=== PATIENT | female | born 1980 | race Caucasian/White ===

== ENCOUNTER → 2018-05-17 08:00 | Outpatient (CLI) | payer OTHER, SELFPAY | DX: Z23 Encounter for immunization (principal) | CPT/HCPCS: 90471; 90686 ==

== ENCOUNTER → 2018-12-05 10:16 | Outpatient (CLI) | payer OTHER, SELFPAY ==
--- NOTE | 2018-12-05 | DI.US.S_ITS ---
PROCEDURE: US OB <= 14 WEEKS FETUS INDICATIONS: SIZE AND DATES OUTSIDE/PRIOR DATING DATA: Last menstrual period (LMP): Unknown LMP-based estimated date of delivery (PARMJIT): Unknown. First dating scan (date and location): 12/05/18. Estimated date of delivery (PARMJIT) from first dating scan: 03/07/19. TECHNIQUE: Real-time scanning was performed of the fetus and maternal pelvic organs, with image documentation. Endovaginal scanning was also performed to better visualize the fetus and maternal ovaries. COMPARISON: None. FINDINGS: Embryo: Single living intrauterine fetus is present. MARLEE measures 18.8 cm. heart rate measured 145 beats per minute. Cervical length measures 3.3 cm. Placenta appears trilobed, with anterior, fundal and posterior component Biparietal diameter measures 25.1 cm, 27 weeks 2 days Head circumference measures 22.6 cm, 27 weeks zero days Abdominal circumference measures 4.8 cm, 25 weeks 6 days length measures 4.4 cm, 26 weeks one day Composite gestational age by today's ultrasound measurements 26 weeks 6 days. Estimated weight 974 g. Measurement variability in dating: +/- 4 weeks by LMP, +/- 7 days by mean sac diameter (use before 6 weeks gestation if crown-rump length not able to be measured), +/- 5 days by crown-rump length (up to 8 weeks 6 days gestation), +/- 7 days by crown-rump length (up to 13 weeks 6 days gestation). IMPRESSION: Single living intrauterine fetus with a gestational age measuring 26 weeks and 6 days by today's ultrasound measurements. Growth assessment is precluded by absence of LMP or first trimester dating ultrasound. If clinically warranted, a followup ultrasound in 3-4 weeks could be performed to assess growth. Dictated by: Taiwo Magana M.D. on 12/05/2018 at 16:40 Approved by: Taiwo Magana M.D. on 12/05/2018 at 16:45
== END ==
LOC: US 10:17
PROVIDERS: Visit Provider Family Medicine
DX: Z36.89 Encounter for other specified antenatal screening (principal); Z3A.26 26 weeks gestation of pregnancy
CPT/HCPCS: 76801

== ENCOUNTER → 2018-12-26 12:15 | Outpatient (CLI) | payer OTHER, SELFPAY ==
--- NOTE | 2018-12-26 | DI.US.S_ITS ---
PROCEDURE: US OB >= 14 WEEKS FETUS INDICATIONS: 20 WEEK ANATOMICAL SURVEY OUTSIDE/PRIOR DATING DATA: Last menstrual period (LMP): Unknown LMP-based estimated date of delivery (PARMJIT): Unknown. First dating scan (date and location): 12/05/18. Estimated date of delivery (PARMJIT) from first dating scan: 03/07/19. TECHNIQUE: Real-time scanning was performed of the fetus, with image documentation and biometric measurements. Endovaginal scanning: No COMPARISON: [facility], OB <= 14 WEEKS FETUS, 12/05/2018, 10:38. [facility], OB COMPLETE 14WKS OR MORE, 05/27/2016, 17:16. FINDINGS: General: A single living intrauterine gestation is present. Presentation: Vertex. Placenta: Placental position is anterior posterior with probable posterior succenturiate lobe and possible Velementous placental cord insertion., without previa. Amniotic fluid index: 22.9 cm, normal range is 5-24 cm. heart rate: 136 beats per minute. Maternal cervical canal: 3.3 cm long. Normal lower limit is 2.5 cm. biometrics: Biparietal diameter: 31 weeks 1 day Head circumference: 31 weeks 0 days Abdominal circumference: 29 weeks 3 days Femur length: 26 weeks 4 days Estimated gestational age from initial scan: 29 weeks 6 days Composite gestational age from present scan: 28 weeks 5 days Estimated weight and percentile: 1282 g; 10 percentile Measurement variability for biometric dating: +/- 7 days from 14 weeks to 15 weeks 6 days gestation, +/- 10 days from 16 weeks to 21 weeks 6 days gestation, +/- 2 weeks from 22 weeks to 27 weeks 6 days gestation, +/- 3 weeks for 28 weeks gestation or later. weight reference: 4500 g or EFW >90/95% is considered macrosomia or large for gestational age. EFW <10% is small for gestational age. EFW 5% or less is considered intra-uterine growth restriction. Anatomic survey: Neuro: Ventricles are non-dilated at less than 10 mm. Cisterna magna is not well seen. Nuchal skin fold: Not well-seen. Face: Nose and lips, facial profile are normal. Spine: No evidence for spina bifida. Heart: Not well-seen. Diaphragm: Diaphragm is intact. Stomach: Left-sided stomach is present. Kidneys: No hydronephrosis. Normal is less than 5 mm in 2nd trimester, less than 7 mm in 3rd trimester. Cord: 3-vessel cord has orthotopic insertion. Bladder: Normal in size. Extremities: Suboptimally visualized. IMPRESSION: 1. Single living IUP redemonstrated in the interval growth is lower limits of normal. 2. Limited anatomic survey as above. Recommend followup. 3. Probable posterior succenturiate lobe of placenta and probable velamentous cord insertion site. Dictated by: Papito Rondon [facility] Interpreted: Nydia Williamson MD on 12/26/2018 at 14:00 Approved by: Nydia Williamson M.D. on 12/26/2018 at 14:52
== END ==
PROVIDERS: Visit Provider Family Medicine
DX: Z36.89 Encounter for other specified antenatal screening (principal); Z3A.28 28 weeks gestation of pregnancy
CPT/HCPCS: 76811

== ENCOUNTER → 2019-01-09 12:44 | Outpatient (CLI) | payer OTHER, SELFPAY ==
--- NOTE | 2019-01-09 | DI.US.S_ITS ---
PROCEDURE: US OB >= 14 WEEKS FETUS INDICATIONS: OB RE-EVALUATION OUTSIDE/PRIOR DATING DATA: Last menstrual period (LMP): Unknown. LMP-based estimated date of delivery (PARMJIT): Unknown. First dating scan (date and location): 12/05/18. Estimated date of delivery (PARMJIT) from first dating scan: 03/07/19. TECHNIQUE: Real-time scanning was performed of the fetus, with image documentation and biometric measurements. Endovaginal scanning: Not done COMPARISON: [facility], OB >= 14 WEEKS FETUS, 12/26/2018, 12:34. FINDINGS: General: A single living intrauterine gestation is present. Presentation: Vertex. Placenta: The bilobed placenta is again seen with a velamentous placental cord insertion, unchanged from previous study. There is no placenta previa. Amniotic fluid index: 27.9 cm, normal range is 5-24 cm. heart rate: 132 beats per minute. Maternal cervical canal: Not well-seen. Normal lower limit is 2.5 cm. biometrics: Biparietal diameter: 8.2 cm, 32 weeks 6 days Head circumference: 29.3 cm, 32 weeks 2 days Abdominal circumference: 27.6 cm, 31 weeks 5 days Femur length: 5.7 cm, 30 weeks zero day Estimated gestational age from initial scan: 31 weeks 6 days Composite gestational age from present scan: 31 week one day Estimated weight and percentile: 1745 g, 23% Measurement variability for biometric dating: +/- 7 days from 14 weeks to 15 weeks 6 days gestation, +/- 10 days from 16 weeks to 21 weeks 6 days gestation, +/- 2 weeks from 22 weeks to 27 weeks 6 days gestation, +/- 3 weeks for 28 weeks gestation or later. weight reference: 4500 g or EFW >90/95% is considered macrosomia or large for gestational age. EFW <10% is small for gestational age. EFW 5% or less is considered intra-uterine growth restriction. Anatomic survey: Neuro: Ventricles are non-dilated at less than 10 mm. Cisterna magna is normal at 3-11 mm. Cerebellum is normal in size and morphology. Nuchal skin fold: Normal at less than 6 mm between 14-21 weeks gestational age. Face: Nose and lips, facial profile are normal. Spine: No evidence for spina bifida. Heart: 4-chambered heart is present, with normal ventricular outflow tracts. Diaphragm: Diaphragm is intact. Stomach: Left-sided stomach is present. Kidneys: No hydronephrosis. Normal is less than 5 mm in 2nd trimester, less than 7 mm in 3rd trimester. Cord: See above. Bladder: Normal in size. Extremities: All 4 extremities identified. IMPRESSION: 1. Single live intrauterine . Normal growth. 2. MARLEE measures 27.9 cm on the current study. 3. Bilobed placenta is again seen with a velamentous placental cord insertion unchanged from prior study. No placenta previa. 4. Otherwise normal anatomic survey. Dictated by: Felton Rodriguez M.D. on 01/09/2019 at 16:28 Approved by: Felton Rodriguez M.D. on 01/09/2019 at 16:33
== END ==
PROVIDERS: PCP Family Medicine; Visit Provider Family Medicine
DX: Z36.2 Encounter for other antenatal screening follow-up (principal); Z3A.31 31 weeks gestation of pregnancy
CPT/HCPCS: 76801; 76811

== ENCOUNTER 2019-01-25 06:38 | Inpatient (IN) | payer OTHER, SELFPAY ==
--- NOTE | 2019-01-25 09:29 | PM.OBHP.1 ---
OB HPI Date/Time Date of admission: 01/25/19 Date Patient Seen: 01/25/19 Time Patient Seen: 09:30 History of Present Condition Chief complaint: LABOR & DELIVERY : 4 Para: 3 Estimated Date of Delivery: 03/07/19 Estimated Gestational Age (weeks): 34 Narrative: Hilary Clemens is a 38 year old female G for P3 who presented with history of rupture 1 hour prior to presentation. Clear fluid. Began having some cramping and some bleeding and was brought to the labor and delivery suite. No other changes. Baby was moving well. No other complaint or problem. Mom presented in active labor was placed on bed and delivered. No other significant changes or complaints. labs were unremarkable except for a blood sugar of 160. She has been checking sugars intermittently and has not had a sugar over 101 postprandial. Has history of bilobed placenta with velamentous cord overall was unremarkable. Late care. Twenty-four weeks. Had no previous care. No other changes. Did not have sequential screen done. No other changes. Dating from 20/6 week ultrasound. Past medical history significant for depression. Is currently on sertraline. No other medications. No other history of significant problems. Indications Indication for induction OB: history of rapid labor History of Present care: limited care Dating criteria: LMP confirmed by 2nd trimester US Evaluation Evaluation Comments: Patient was never placed on monitor Meds Home Medications Medication Instructions Recorded Confirmed Type docusate sodium 250 mg PO QDAY #30 cap 09/22/16 Rx ibuprofen 600 mg PO Q6HP PRN #60 tab 09/22/16 Rx Allergies Allergy/AdvReac Type Severity Reaction Status Date / Time No Known Drug Allergies Allergy Unknown Unverified 11/01/17 12:53 INGREDIENT: NKDA - NO KNOWN Allergy Unknown Uncoded 11/01/17 12:53 DRUG ALLERGIES Review of Systems Review of Systems Patient felt well had no other complaints Exam Vital Signs (past 8 hours): Alert female lying in bed no acute distress placenta intact still present. Lungs are clear. Heart regular rate and rhythm. Abdomen is soft positive bowel sounds [place] is firm. Minimal bleeding. Small tear 1st degree superior left labia. Extremities without cyanosis clubbing edema. Assessment and Plan Assessment and Plan Assessment and Plan narrative: Status post . Delivery of placenta will be careful with history of velamentous cord. Otherwise appears to be quite stable. Usual care. Due to early delivery and probable transport of baby will need to consider early discharge if stable.
--- NOTE | 2019-01-25 09:53 | PM.OBPRVD ---
Events: Gestational Diabetes Delivery date: 01/25/19 Intrapartal events: Precipitous Labor < 3 hours Cervical ripening method: none Induction method: none Delivery monitor: none Route of delivery: L&D Laceration Description: Periurethral - 1st Degree Estimated blood loss (mL): 200 Complications: Preceptor this delivery Narrative: Patient presented complete and pushing. heart monitor was not able to be placed. Within 1-2 minutes of her presentation she delivered away over small 1st degree labial tear. Delivery was uncomplicated. Child required no resuscitation. Patient was 34 weeks. Had history of abnormal cord incision. Placenta was left alone. There was minimal bleeding. Placenta delivered spontaneous intact 3 vessels. No bleeding after that. There was a firm uterus. Pitocin was given. Evaluated vagina and labia and found to have a small first-degree left periurethral tear. No repair was done. Mother and were in stable condition.
[2019-01-25] MEDS: IBUPROFEN 600 MG TABLET PO (11:23)
--- NOTE | 2019-01-25 13:33 | P.DS_ITS ---
History of Present Illness Date Patient Seen: 01/25/19 Time Patient Seen: 12:30 Chief complaint: LABOR AND DELIVERY Narrative: Please see H&P. Discharge Providers Date of admission: 01/25/19 06:38 Discharge Date: 01/25/19 Primary care physician: Chaparrita Nettles MD Consults: 01/25/19 09:07 Consult to Exhibit Designer Routine Comment: Consult to Exhibit Designer Routine Comment: Discharge provider: Carmen Best MD Summary Discharge Diagnosis: 1. 38 yo 2. Status post precipitous vaginal delivery at approximately 34 weeks gestational age 3. Late presentation to care 4. GBS status unknown 5. Impaired fasting glucose, risk for gestational diabetes, untreated Hospital Course: Unremarkable. Patient had precipitous delivery with an unremarkable delivery of placenta. She was monitored closely for over 4 hours and was found to be afebrile with stable vital signs throughout. At time of discharge she is tolerating a general diet and ambulating well. Lochia is less than menses. Shared decision was made to proceed with early discharge secondary to transfer of her to [facility] for acute respiratory distress and hypoglycemia. Patient given routine instructions. She understands to return promptly for pain not controlled, fever, intractable nausea or vomiting, trouble with urination, heavy vaginal bleeding greater than 1 pad per hour, suicidal or homicidal thoughts, signs or symptoms of infection, or any other concerns. Advised to avoid heavy lifting and to observe pelvic rest for 6 weeks. Follow-up in 6 weeks with primary care provider, sooner as needed. Time spent on discharge and coordination of post-hospital care: 30 minutes. Status at Discharge Cognitive/behavioral status at discharge: at baseline, oriented Functional status at discharge: independent ambulation Overall status at discharge: patient is progressing back to baseline Time Spent with Patient Greater than 30 minutes Exam Narrative Exam Narrative: General: Alert and oriented, no acute distress. HEENT: Neck is soft and supple, midline trachea. Lungs: Clear auscultation bilaterally, no wheezes rhonchi or rales. CV: Normal S1 and S2 with regular rate and rhythm, no audible murmurs rubs or gallops. Abdomen, soft, nontender, nondistended, positive bowel sounds. Firm fundus at U -3. Extremities: No clubbing, cyanosis, or edema. Psych: Judgment and insight intact. Skin: No concerning lesions. Discharge Plan Discharge Plan Patient Disposition: Home Discharge comment: stable Discharge Med Rec/Prescriptions Prescriptions: New Prenatabs Rx 29 mg iron- 1 mg Tablet 1 tab PO DAILY Qty: 90 RF: 3 ibuprofen 600 mg Tablet 600 mg PO Q6HR PRN (Reason: Pain, Mild (1-3)) Qty: 90 RF: 1 Continued ibuprofen 600 MG tablet 600 mg PO Q6HP PRNQty: 60 RF: 1 docusate sodium 250 MG capsule 250 mg PO QDAY Qty: 30 RF: 1 Follow up/Referrals: Chaparrita Nettles MD [Primary Care Provider] - (Follow up with Dr. Nettles on MondayMarch 11 at 2:15, Call for any questions or concerns or to reschedule.) Provider Discharge Instructions Diet: Regular Diet comment: Regular Activity: as tolerated Skin/Wound/Dressing Care Report to your healthcare provider any signs of infection, such as:: chills, fever, increased pain, unusual drainage and unusual redness Visit Report/Discharge Packet Stand Alone Forms: Discharge: Care Discharge Data Primary Care Provider: Chaparrita Nettles Attending Provider: Maria Isabel Pugh Admit Date/Time: 01/25/19 06:38 Discharges patient from system. Discharge Date/Time: 01/25/19 14:05
[2019-01-25 13:39] VITALS: BP 110/72
[2019-01-25 13:45] VITALS: BP 118/66; PULSE 63; RESP 18; TEMP 36.7
== END 2019-01-25 14:05 | disposition home or self-care (01) | DRG 805 ==
PROVIDERS: Admitting Provider Obstetrics & Gynecology; PCP Family Medicine; Visit Provider Obstetrics & Gynecology
DX: O62.3 Precipitate labor (principal); O60.14X0 Preterm labor third trimester with preterm delivery third trimester, not applicable or unspecified; Z37.0 Single live birth; Z3A.34 34 weeks gestation of pregnancy
CPT/HCPCS: 59050; G0379

== ENCOUNTER → 2019-05-02 17:11 | Outpatient (CLI) | payer OTHER, SELFPAY | PROVIDERS: PCP Family Medicine | DX: Z23 Encounter for immunization (principal) | CPT/HCPCS: 90471; 90686 ==

== ENCOUNTER → 2020-04-24 03:20 | Outpatient (CLI) | payer OTHER, SELFPAY | PROVIDERS: PCP Family Medicine; Referring Provider Internal Medicine; Visit Provider Internal Medicine | DX: Z23 Encounter for immunization (principal) | CPT/HCPCS: 90471; 90686 ==

== ENCOUNTER → 2020-07-29 09:10 | Outpatient (CLI) | payer OTHER, SELFPAY ==
[2020-07-29 11:31] LABS: COVID19 -Nasal RAPID Negative (Negative)
== END ==
PROVIDERS: PCP Family Medicine; Visit Provider Nurse Practitioner
DX: Z20.822 Contact with and (suspected) exposure to COVID-19 (principal)
CPT/HCPCS: 87635

== ENCOUNTER → 2020-07-30 12:14 | Outpatient (CLI) | payer OTHER, SELFPAY ==
[2020-07-30] MEDS: COVID-19 VACC(MODERNA-1)/PF 100 MCG/0.5 ML VIAL IM (12:18)
== END ==
PROVIDERS: PCP Family Medicine; Visit Provider Internal Medicine
DX: Z23 Encounter for immunization (principal)
CPT/HCPCS: 0011A; 91301

== ENCOUNTER → 2020-08-28 15:05 | Outpatient (CLI) | payer OTHER, MEDICAID, SELFPAY ==
[2020-08-28] MEDS: COVID-19 VACC #2, MRNA(MOD) 100 MCG/0.5 ML VIAL IM (15:08)
== END ==
PROVIDERS: PCP Family Medicine; Visit Provider Internal Medicine
DX: Z23 Encounter for immunization (principal)
CPT/HCPCS: 0012A; 91301

== ENCOUNTER → 2021-04-27 19:31 | Outpatient (CLI) | payer OTHER, MEDICAID, SELFPAY | PROVIDERS: PCP Family Medicine; Referring Provider Internal Medicine; Visit Provider Internal Medicine | DX: Z23 Encounter for immunization (principal) | CPT/HCPCS: 90471; 90686 ==

== ENCOUNTER → 2022-05-03 11:20 | Outpatient (CLI) | payer OTHER, MEDICAID, SELFPAY | PROVIDERS: PCP Family Medicine; Referring Provider Internal Medicine; Visit Provider Internal Medicine | DX: Z23 Encounter for immunization (principal) | CPT/HCPCS: 90471; 90686 ==

== ENCOUNTER → 2022-05-19 15:22 | Outpatient (CLI) | payer OTHER, MEDICAID, SELFPAY ==
--- NOTE | 2022-05-19 15:27 | DI.US.S_ITS ---
PROCEDURE: US PELVIC COMPLETE INDICATIONS: PELVIC AND PERINEAL PAIN TECHNIQUE: Real-time scanning was performed of the pelvic organs, with image documentation. Additional endovaginal scanning was necessary due to incomplete visualization of the adnexal and endometrial structures by transabdominal scanning. COMPARISON: None. FINDINGS: Normal appearance of the uterus. No uterine mass. IUD is in appropriate normal position. Simple cyst in the right ovary measuring 1.5 cm. Otherwise normal appearance of both ovaries. IMPRESSION: Normal position of IUD. Otherwise normal exam. We strive to produce accurate, complete, and clear reports of imaging services. To assist us in improving patient care, this report was composed using standard report templates and voice recognition software. Therefore, it may contain abnormal punctuation, insertions and/or omissions. Occasional wrong-word or sound-alike substitutions may occur. Though we review the report and make efforts to correct it, we do recommend that the report be read carefully in proper context to recognize any text inaccuracies. Dictated by: Rajesh Mckeon M.D. on 05/19/2022 at 16:38 Approved by: Rajesh Mckeon M.D. on 05/19/2022 at 16:39
== END ==
PROVIDERS: PCP Family Medicine; Referring Provider Family Medicine; Visit Provider Family Medicine
DX: N83.291 Other ovarian cyst, right side (principal); R10.2 Pelvic and perineal pain; Z97.5 Presence of (intrauterine) contraceptive device
CPT/HCPCS: 76830; 76856; 93975

== ENCOUNTER → 2022-10-03 08:20 | Outpatient (CLI) | payer OTHER, MEDICAID, SELFPAY ==
[2022-10-03 09:10] LABS: Influenza A - CEPHEID Flu A NEGATIVE (NEGATIVE); Influenza B - CEPHEID Flu B NEGATIVE (NEGATIVE); Respiratory Syncytial Virus Negative (Negative)
[2022-10-03 09:23] LABS: COVID-19 CEPHEID 4-PLEX PCR Negative (Negative)
== END ==
PROVIDERS: PCP Family Medicine; Visit Provider Registered Nurse
DX: R05.9 Cough, unspecified (principal)
CPT/HCPCS: 0241U

== ENCOUNTER → 2022-10-03 08:29 | Outpatient (CLI) | payer OTHER, MEDICAID, SELFPAY ==
--- NOTE | 2022-10-03 08:30 | DI.RAD.S_ITS ---
PROCEDURE: XR CHEST 2V INDICATIONS: Right-sided chest pain TECHNIQUE: 2 views of the chest were acquired. COMPARISON: None. FINDINGS: Surgical changes and devices: None. Lungs and pleura: Lungs are clear. No pleural effusions or pneumothorax. Mediastinum: Mediastinal contours are normal. Heart size is normal. Bones and chest wall: No suspicious bony abnormalities. Soft tissues appear unremarkable. IMPRESSION: No acute cardiopulmonary process. Dictated by: Dereck Griffith M.D. on 10/03/2022 at 8:43 Approved by: Dereck Griffith M.D. on 10/03/2022 at 8:43
== END ==
PROVIDERS: PCP Family Medicine; Referring Provider Registered Nurse; Visit Provider Registered Nurse
DX: R07.9 Chest pain, unspecified (principal); R05.9 Cough, unspecified
CPT/HCPCS: 0241U; 71046

== ENCOUNTER → 2023-06-07 02:47 | Outpatient (CLI) | payer OTHER, SELFPAY | PROVIDERS: PCP Family Medicine; Referring Provider Family Medicine; Visit Provider Family Medicine | DX: Z23 Encounter for immunization (principal) | CPT/HCPCS: 90471; 90686 ==

== ENCOUNTER → 2023-12-15 08:01 | Outpatient (CLI) | payer OTHER, SELFPAY ==
--- NOTE | 2023-12-15 08:02 | DI.MG.S_ITS ---
BILATERAL DIGITAL SCREENING MAMMOGRAM 3D/2D WITH CAD: 12/15/2023 CLINICAL: Routine screening. Baseline exam. No prior exams were available for comparison. Both breasts are heterogeneously dense, which may obscure small masses (category c / 51-75% glandular tissue). Current study was also evaluated with a Computer Aided Detection (CAD) system. No significant masses, calcifications, or other findings are seen in either breast. IMPRESSION: NEGATIVE There is no mammographic evidence of malignancy. A 1 year screening mammogram is recommended. Based on the Tyrer Cuzick model (a risk assessment model) the patient's lifetime risk is 11.6% and her 10 year risk is 1.7%. According to the ACR, ACS, and NCCN guidelines, an annual breast MRI exam along with mammogram is recommended if the patient's lifetime risk is 20% or greater. This exam was interpreted at Station ID: [id number]. NOTE: For mammograms, a report in lay terms will be sent to the patient. Approximately 15% of breast malignancies will not be visualized mammographically. In the management of a palpable breast mass, a negative mammogram must not discourage biopsy of a clinically suspicious lesion. Electronically Signed By: Michael pierce/ward:12/15/2023 15:54:59 letter sent: Normal Exam ACR BI-RADS Category 1: Negative [id number]
== END ==
LOC: MAMMO 08:01
PROVIDERS: PCP Family Medicine; Referring Provider Family Medicine; Visit Provider Family Medicine
DX: Z12.31 Encounter for screening mammogram for malignant neoplasm of breast (principal); R92.333 Mammographic heterogeneous density, bilateral breasts
CPT/HCPCS: 77063; 77067

== ENCOUNTER → 2024-06-07 | Outpatient (CLI) | payer OTHER, SELFPAY | PROVIDERS: PCP Family Medicine; Referring Provider Internal Medicine; Visit Provider Internal Medicine | DX: Z23 Encounter for immunization (principal) | CPT/HCPCS: 90471; 90656 ==

== ENCOUNTER → 2025-07-03 14:17 | Outpatient (CLI) | payer OTHER, SELFPAY ==
--- NOTE | 2025-07-03 14:18 | DI.MG.S_ITS ---
MM screening mammo BI: 07/03/2025. BI-RADS: 1 CLINICAL: 44-year old female for bilateral screening mammogram. Tyrer-Cuzick lifetime risk of 9.3%. No personal or first-degree family history of breast cancer. PRIOR EXAMS 12/15/2023. MAMMOGRAPHY TECHNIQUE: 2D and 3D (tomosynthesis) digital mammographic views obtained, with additional images as needed for full coverage. Current study was also evaluated with a Computer Aided Detection (CAD) system. DENSITY C. The breasts are heterogeneously dense, which may obscure small masses. MAMMOGRAPHY FINDINGS Bilateral: No suspicious mass, asymmetry, microcalcification, or other abnormality seen. IMPRESSION: * No evidence of malignancy. RECOMMENDATIONS Bilateral * Annual screening mammography. OVERALL ASSESSMENT CATEGORY BI-RADS-1: Negative. The [employer] [place] recommends annual screening mammography beginning at age 40 for women with average risk of breast cancer. ELECTRONICALLY SIGNED: May Christianson M.D. on 07/07/2025 at 05:01:36 PM PT Interpreting Station ID: [id number]
== END ==
PROVIDERS: PCP Family Medicine; Referring Provider Family Medicine; Visit Provider Family Medicine
DX: Z12.31 Encounter for screening mammogram for malignant neoplasm of breast (principal); R92.333 Mammographic heterogeneous density, bilateral breasts
CPT/HCPCS: 77063; 77067